=== PATIENT | male | born 1940 | race Caucasian/White ===

== ENCOUNTER 2020-05-11 07:33 | Emergency (ER) | payer MEDICARE ==
[2020-05-11] MEDS ORDERED: Oxymetazoline HCl 0.05% (30 ML BOT) ONE (07:47)
[2020-05-11 08:20] LABS: INR-International Normal Ratio 3.1; Prothrombin Time 31.6 sec (12.0-14.7)
[2020-05-11 08:26] LABS: #Lymphocytes 1.8 thou/uL (1.20-3.40); #Monocytes 0.4 thou/uL (0.11-0.59); #Neutrophils 1.5 thou/uL (1.40-6.50); %Basophils 1.1 % (0.0-1.0); %Eosinophils 1.2 % (0.0-10.0); %Lymphocytes 47.6 % (21.0-51.0); %Monocytes 11.1 % (0.0-10.0); Hemoglobin 12.9 g/dL (14.0-18.0); Mean Platelet Volume 8.7 fL (7.4-10.4); Platelet Count 231 thou/uL (130-400); RBC Distribution Width 11.8 % (11.5-14.5); White Blood Cell (WBC) Count 3.7 thou/uL (4.8-10.8)
== END 2020-05-11 08:32 | disposition home or self-care (01) ==
LOC: BURERS 07:33
DX: R04.0 Epistaxis (principal); I10 Essential (primary) hypertension; K21.9 Gastro-esophageal reflux disease without esophagitis; Z86.73 Personal history of transient ischemic attack (TIA), and cerebral infarction without residual deficits; Z86.718 Personal history of other venous thrombosis and embolism; Z86.711 Personal history of pulmonary embolism; Z79.899 Other long term (current) drug therapy; Z79.01 Long term (current) use of anticoagulants
CPT/HCPCS: 36415; 85025; 85610; 99283

== ENCOUNTER 2020-05-12 17:11 | Emergency (ER) | payer MEDICARE | END 2020-05-12 18:04 | disposition home or self-care (01) | LOC: BURERS 17:11 | DX: R04.0 Epistaxis (principal); K21.9 Gastro-esophageal reflux disease without esophagitis; I10 Essential (primary) hypertension; Z86.73 Personal history of transient ischemic attack (TIA), and cerebral infarction without residual deficits; Z86.711 Personal history of pulmonary embolism; Z86.718 Personal history of other venous thrombosis and embolism; Z79.899 Other long term (current) drug therapy; Z79.01 Long term (current) use of anticoagulants | CPT/HCPCS: 99283 ==